=== PATIENT | female | born 1980 | race Caucasian/White ===

== ENCOUNTER 2024-04-10 10:45 | Emergency (ER) | payer OTHER, SELFPAY ==
--- NOTE | ~2024-04-10 | XR_ITS ---
Left Knee Technique: AP, lateral, and oblique views were obtained. Clinical History: Pain Findings: No fracture or dislocation is seen. Osseous alignment is anatomic. Joint spaces are preserv ed without degenerative or erosive change. Soft tissues are unremarkable. No joint effusion is seen. Impression: Unremarkable left knee radiographs. Reviewed, dictated and finalized at location . Impression: Unremarkable left knee radiographs.
--- NOTE | ~2024-04-10 | XR_ITS ---
Right foot Technique: AP, oblique, and lateral views were obtained. Clinical History: Pain Findings: Possible fracture the medial hallux sesamoid. Acute transverse nondisplaced fracture of the distal second metatarsal neck. No other fracture or dislocation seen.. Osseous alignment is anatomic . Joint spaces are preserved without erosive or degenerative change. Soft tissues are unremarkable. Impression: Acute transverse fracture of the distal second metatarsal neck. Possible fracture of the medial hallux sesamoid. Reviewed, dictated and finalized at location . Impression: Acute transverse fracture of the distal second metatarsal neck. Possible fracture of the medial hallux sesamoid.
[2024-04-10 10:43] VITALS: BP 143/80; PULSE 73; RESP 13; TEMP 36.4; O2SAT 100
[2024-04-10] MEDS: ACETAMINOPHEN 500 MG TABLET 1000 MG PO (11:41)
[2024-04-10] MEDS: KETOROLAC 15 MG/ML VIAL (*BKC) IM (11:42)
[2024-04-10] MEDS: methocarbamoL 750 MG TABLET 1500 MG PO (11:42)
[2024-04-10 11:45] VITALS: BP 137/80; PULSE 70; RESP 21; O2SAT 99
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
[2024-04-10 13:46] VITALS: BP 126/76; PULSE 73; RESP 17; TEMP 36.4; O2SAT 99
== END 2024-04-10 13:48 | disposition home or self-care (01) ==
PROVIDERS: Emergency Provider Emergency Medicine
DX: S92.324A Nondisplaced fracture of second metatarsal bone, right foot, initial encounter for closed fracture (principal); V89.2XXA Person injured in unspecified motor-vehicle accident, traffic, initial encounter
CPT/HCPCS: 29515; 73562; 73630; 96372; 99284; A9270; J1885